=== PATIENT | male | born 1980 | race Two or more races ===

== ENCOUNTER 2025-02-22 01:37 | Emergency (ER) | payer MEDICAID ==
[~2025-02-22] VITALS: Ht 160 cm; Wt 113.4 kg
[2025-02-22 01:47] VITALS: TEMP 98.8
[2025-02-22 03:31] LABS: ASPARTATE AMINOTRANSFERASE 30.0 U/L (15-37); CALCIUM, SERUM 9.4 mg/dL (8.5-10.1); CREATININE 0.9 mg/dL (0.6-1.3); SODIUM SERUM 138.0 mmol/L (136-145); TOTAL PROTEIN, SERUM 9.3 g/dL (6.4-8.2); UREA NITROGEN, BLOOD 12.0 mg/dL (7-18)
[2025-02-22 03:32] LABS: PLATELET COUNT (AUTO) 256 K/uL (150-450); RED BLOOD CELL COUNT(AUTO) 5.55 MIL/uL (4.5-6.0); RED CELL DISTRIBUTION WIDTH 14.2 % (11.5-15.0); WHITE BLOOD COUNT (AUTO) 10.6 K/uL (4.3-11.0)
[2025-02-22 04:16] VITALS: BP 169/92; O2SAT 98
== END 2025-02-22 04:20 | disposition home or self-care (01) ==
LOC: ER 01:42
DX: R04.2 Hemoptysis (principal); R07.89 Other chest pain; Z20.822 Contact with and (suspected) exposure to COVID-19; Z79.899 Other long term (current) drug therapy
CPT/HCPCS: 36415; 71045-TC; 80053-TC; 83735-TC; 84484-TC; 85025-TC; 86140-TC